=== PATIENT | female | born 1985 | race Caucasian/White ===

== ENCOUNTER 2018-04-13 07:55 | Emergency (ER) | payer OTHER ==
[2018-04-13] MEDS: CYCLOBENZAPRINE 10 MG TAB PO (09:49)
[2018-04-13] MEDS: NORCO, ANEXSIA 5/325MG TABLET (HYDROcodone/ACETAMINOPHEN) PO (09:49)
== END 2018-04-13 09:55 | disposition home or self-care (01) ==
LOC: M ED 07:55
DX: S16.1XXA Strain of muscle, fascia and tendon at neck level, initial encounter (principal); V49.40XA Driver injured in collision with unspecified motor vehicles in traffic accident, initial encounter; Y92.410 Unspecified street and highway as the place of occurrence of the external cause; F32.9 Major depressive disorder, single episode, unspecified
CPT/HCPCS: 72125

== ENCOUNTER 2018-05-14 19:34 | Emergency (ER) | payer OTHER ==
[2018-05-14 20:08] LABS: KETONE, URINE AUTO RFX TRACE mg/dL (NEGATIVE); MUCUS, URINE RFX LARGE (NEGATIVE); NITRITE, URINE AUTO RFX NEGATIVE (NEGATIVE); RBC, URINE AUTO RFX 1 /HPF (0-3); SPECIFIC GRAVITY UR AUTO RFX 1.029 (1.002-1.035); SQUAM EPITHELIAL CELL UR AURFX 3 /HPF (0-6); WBC, URINE AUTO RFX 3 /HPF (0-3)
[2018-05-14 20:26] LABS: LEUKOCYTE ESTERASE UR AUTO RFX TRACE (NEGATIVE)
[2018-05-14 20:33] LABS: BASO % 0.3 % (0.0-1.0); EOS # 0.4 10^3/uL (0.0-0.50); EOS % 2.9 % (0.0-3.0); HEMATOCRIT 37.1 % (36.0-47.0); IMMATURE GRANULOCYTE % 0.4 % (0-3.0); LYMPH # 3.7 10^3/uL (1.5-4.5); MEAN CORPUSCULAR HEMOGLOBIN 29.8 pg (27.0-33.0); MEAN CORPUSCULAR VOLUME 85.1 fl (80.0-96.0); MONO # 0.7 10^3/uL (0.0-0.8); MONO % 5.9 % (0.0-5.0); NEUTROPHILS # 7.1 10^3/uL (1.8-7.7); NEUTROPHILS % 59.5 % (36.0-66.0); PLATELET COUNT, AUTOMATED 338 10^3/uL (150-450); RED BLOOD COUNT 4.36 10^6/uL (4.00-5.40); RED CELL DISTRIBUTION WIDTH 12.2 % (11.5-14.5)
[2018-05-14 21:08] LABS: HCG, SERUM QUANTITATIVE 520 MIU/ML
== END 2018-05-14 21:27 | disposition home or self-care (01) ==
LOC: M ED 19:34
DX: Z32.01 Encounter for pregnancy test, result positive (principal); N93.9 Abnormal uterine and vaginal bleeding, unspecified; Z87.442 Personal history of urinary calculi; Z98.890 Other specified postprocedural states
CPT/HCPCS: 84702

== ENCOUNTER 2018-05-23 07:30 | Emergency (ER) | payer OTHER ==
[2018-05-23 08:04] LABS: KETONE, URINE AUTO RFX TRACE mg/dL (NEGATIVE); MUCUS, URINE RFX SMALL (NEGATIVE); NITRITE, URINE AUTO RFX NEGATIVE (NEGATIVE); RBC, URINE AUTO RFX 1 /HPF (0-3); SPECIFIC GRAVITY UR AUTO RFX 1.021 (1.002-1.035); SQUAM EPITHELIAL CELL UR AURFX 5 /HPF (0-6); WBC, URINE AUTO RFX 7 /HPF (0-3)
[2018-05-23 09:26] LABS: LEUKOCYTE ESTERASE UR AUTO RFX 1+ (NEGATIVE)
[2018-05-23 11:06] LABS: CHLAMYDIA DNA AMPLIFICATION NEGATIVE (NEGATIVE); GC DNA AMPLIFICATION NEGATIVE (NEGATIVE)
== END 2018-05-23 10:51 | disposition home or self-care (01) ==
LOC: M ED 07:30
DX: N30.90 Cystitis, unspecified without hematuria (principal); N76.0 Acute vaginitis; Z3A.08 8 weeks gestation of pregnancy
CPT/HCPCS: 81001

== ENCOUNTER 2018-07-23 09:56 | Emergency (ER) | payer OTHER, SELFPAY ==
[~2018-07-23] VITALS: Ht 167.6 cm; Wt 101.8 kg
[~2018-07-23 09:56] MED LIST: CYCL5TAB PO; FLAG500T PO; MACR100C43 PO; NAPR-50 PO; PRENTAB45 PO; TRAZ50TA; ZOLO50TA
[2018-07-23 11:06] LABS: INFLUENZA A AMPLIFICATION NEGATIVE (NEGATIVE); INFLUENZA B AMPLIFICATION NEGATIVE (NEGATIVE)
[2018-07-23 12:39] VITALS: BP 117/73
--- NOTE | 2018-07-23 13:46 | REP ---
SINGLE OB ULTRASOUND: HISTORY: Pelvic discomfort. A single intrauterine is present in breech presentation. heart rate is 168 beats per minute. Biparietal diameter 2.6 cm, 14 weeks 4 days. Head circumference 10 cm, 14 weeks 5 days. Abdominal circumference 8.3 cm, 14 weeks 5 days. Femur length 1.6 cm, 14 weeks 5 days. Humerus length 1.6 cm, 14 weeks 3 days. weight 104 grams. The visualized anatomy is normal. The placenta is anterior. There is no abruption. The amniotic fluid is within normal limits. The cervix measures 3.6 cm. A 3.1 cm cyst is present in the left ovary. IMPRESSION: A single intrauterine is present in breech presentation. Gestational age by ultrasound is 14 weeks 4 days. A repeat examination in 19-20 weeks is recommended for further evaluation. Electronically Signed by gS Everett MD 07/23/2018 02:27 P
== END 2018-07-23 12:40 | disposition home or self-care (01) ==
LOC: M ED 09:56
DX: O99.89 Other specified diseases and conditions complicating pregnancy, childbirth and the puerperium (principal); B34.9 Viral infection, unspecified; H92.03 Otalgia, bilateral; M79.10 Myalgia, unspecified site; R09.89 Other specified symptoms and signs involving the circulatory and respiratory systems; Z3A.15 15 weeks gestation of pregnancy

== ENCOUNTER 2018-07-29 22:02 | Emergency (ER) | payer OTHER, SELFPAY ==
[~2018-07-29] VITALS: Ht 165.1 cm; Wt 101.8 kg
[2018-07-29] MEDS ORDERED: SUDAFED (22:08)
[2018-07-29 22:17] VITALS: BP 115/71
[2018-07-29] MEDS ORDERED: guaiFENesin SYRUP 200 MG/10 ML UDC PO ONE (22:45)
[2018-07-29] MEDS ORDERED: AZITHROMYCIN 250 MG TAB PO ONE (22:45)
[2018-07-29] MEDS ORDERED: GUAI100S27 PO (22:45)
[2018-07-29] MEDS ORDERED: AZIT-12 PO (22:45)
[2018-07-29] MEDS ORDERED: FLON1SPR NARES (22:45)
== END 2018-07-29 22:51 | disposition home or self-care (01) ==
LOC: M ED 22:02
DX: J06.9 Acute upper respiratory infection, unspecified (principal); Z79.899 Other long term (current) drug therapy

== ENCOUNTER 2018-10-06 14:50 | Outpatient (CLI) | payer SELFPAY ==
[~2018-10-06] VITALS: Ht 167.6 cm; Wt 105.1 kg
[~2018-10-06 14:50] MED LIST changes: +AZIT-12 PO; +FLON1SPR NARES; +GUAI100S27 PO; +SUDAFED
[2018-10-06 15:20] VITALS: BP 110/62
== END 2018-10-06 19:30 | disposition home or self-care (01) ==
LOC: M LDO 14:50
PROVIDERS: ATTEND Obstetrics & Gynecology
DX: O26.892 Other specified pregnancy related conditions, second trimester (principal); R42 Dizziness and giddiness; W18.39XA Other fall on same level, initial encounter; Z3A.24 24 weeks gestation of pregnancy; Y99.8 Other external cause status
CPT/HCPCS: G0378; G0463